=== PATIENT | female | born 1965 | race American Indian/Alaskan Native ===

== ENCOUNTER 2018-10-11 12:34 | Observation (INO) | payer BC ==
[2018-10-11 12:40] VITALS: BMI 26.6
[2018-10-11] MEDS ORDERED: Nitroglycerin 2% Ointment Foilpak UD TOP STA (12:59)
[2018-10-11] MEDS ORDERED: Aspirin 325 mg EC Tablets PO STA (12:59)
--- NOTE | 2018-10-11 12:59 | C.PDOC ---
History Of Present Illness 53 year old female presents to ED with complaint of new onset chest pain since yesterday. Pain is described as intermittent and non-exertional. Patient was sent from her PMD's office after they noted changes in her EKG. Patient was sent for admission. She also complains of headache and nausea. She states that today she awoke with persistent chest pressure and new onset discomfort in her left arm. Patient denies SOB, vomiting, and dizziness. <Naty Robertson - Last Filed: 10/11/18 13:24> History Per: Patient History/Exam Limitations: no limitations Onset/Duration Of Symptoms: Days (1), Intermittent Episodes, Sudden Onset Current Symptoms Are (Timing): Still Present Quality: Pressure, "Pain" Associated Symptoms: Nausea, Other (headache). denies: Dyspnea <Naty Robertson - Last Filed: 10/11/18 13:24> <Selina Bojorquez - Last Filed: 10/11/18 13:48> Time Seen by Provider: 10/11/18 12:54 Chief Complaint (Nursing): Chest Pain Past Medical History Reviewed: Historical Data, Nursing Documentation, Vital Signs Vital Signs: Last Vital Signs Temp 98.1 F 10/11/18 12:42 Pulse 90 10/11/18 12:42 Resp 18 10/11/18 12:42 BP 145/91 H 10/11/18 12:42 Pulse Ox 96 10/11/18 12:42 - Medical History PMH: HTN Surgical History: No Surg Hx Family History: States: Unknown Family Hx - Social History Hx Tobacco Use: No Hx Alcohol Use: No Hx Substance Use: No - Immunization History Hx Tetanus Toxoid Vaccination: No Hx Influenza Vaccination: No Hx Pneumococcal Vaccination: No <MarceloNaty - Last Filed: 10/11/18 13:24> Vital Signs: Last Vital Signs Temp 98.1 F 10/11/18 12:42 Pulse 90 10/11/18 12:42 Resp 18 10/11/18 12:42 BP 145/91 H 10/11/18 12:42 Pulse Ox 96 10/11/18 13:25 <Selina Bojorquez - Last Filed: 10/11/18 13:48> Review Of Systems Constitutional: Negative for: Fever, Chills, Weakness Cardiovascular: Positive for: Chest Pain. Negative for: Palpitations Respiratory: Negative for: Cough, Shortness of Breath Gastrointestinal: Positive for: Nausea. Negative for: Vomiting Musculoskeletal: Positive for: Arm Pain (discomfort in the left arm) Neurological: Positive for: Headache. Negative for: Weakness, Numbness, Dizziness <Naty Robertson - Last Filed: 10/11/18 13:24> Physical Exam - Physical Exam Appears: Well, Non-toxic, No Acute Distress Skin: Normal Color, Warm, Dry Head: Atraumatic, Normacephalic Neck: Normal ROM, Supple Chest: Symmetrical, No Deformity Cardiovascular: Rhythm Regular, No Murmur Respiratory: No Accessory Muscle Use, Other (NARD) Gastrointestinal/Abdominal: Soft, No Tenderness Extremity: Capillary Refill (<2 seconds) Extremity: Bilateral: Atraumatic, Normal Color And Temperature Pulses: Left Radial: Normal, Right Radial: Normal Neurological/Psych: Oriented x3, Normal Speech, Normal Cognition <Naty Robertson Last Filed: 10/11/18 13:24> ED Course And Treatment ECG: Interpreted By Me ECG Rhythm: Sinus Rhythm ECG Interpretation: Normal Rate From EC O2 Sat by Pulse Oximetry: 96 (RA) Pulse Ox Interpretation: Normal Progress Note: EKG and CXR ordered for patient. CBC and troponin ordered for patient. Aspirin PO and NTG TOP given to patient. Discussed with Dr. Oshea prior to arrival to admit patient under observation for chest pain. <Naty Robertson - Last Filed: 10/11/18 13:24> - Laboratory Results Result Diagrams: 10/11/18 13:22 - Other Rad CXR X-Ray: Interpreted by Me, Viewed By Me Interpretation: Accession No. : [id number]. Patient Name / ID : LISA KENDALL / [id number]. Exam Date : 10/11/2018 13:03:42 ( Approved ). Study Comment : Sex / Age : F / 53Y. Creator : tasneem beebe. Dictator : Yong Awad MD. Steam Box Operator : Cushion Maker : Yong Awad MD. Approver2 : Report Date : 10/11/2018 13:07:40. My Comment : . Date of service: 10/11/2018. HISTORY: Chest pain. COMPARISON: No prior study available for comparison. FINDINGS: LUNGS: No active pulmonary disease. PLEURA: No significant pleural effusion identified, no pneumothorax apparent. CARDIOVASC ULAR: No aortic atherosclerotic calcification present. Normal cardiac size. No pulmonary vascular congestion. OSSEOUS STRUCTURES: No significant abnormalities. VISUALIZED UPPER ABDOMEN: Normal. OTHER FINDINGS: None. IMPRESSION: No active disease. <Selina Bojorquez - Last Filed: 10/11/18 13:48> Disposition Counseled Patient/Family Regarding: Studies Performed, Diagnosis - Disposition Disposition Time: 12:57 - POA Present On Arrival: None <Naty Robertson - Last Filed: 10/11/18 13:24> <Selina Bojorquez - Last Filed: 10/11/18 13:48> - Disposition Disposition: HOSPITALIZED Condition: STABLE - Clinical Impression Clinical Impression: Chest pain - PA / FOOD PRESERVATION SCIENTIST / Resident Statement MD/DO has reviewed & agrees with the documentation as recorded. (Francisca Mcneil) - Scribe Statement All medical record entries made by the Scribe were at my direction and person ally dictated by me. I have reviewed the chart and agree that the record accurately reflects my personal performance of the history, physical exam, medical decision making, and the department course for this patient. I have also personally directed, reviewed, and agree with the discharge instructions and disposition. <Naty Robertson - Last Filed: 10/11/18 13:24>
[2018-10-11] MEDS ORDERED: Nitroglycerin 2% Ointment Foilpak UD TOP ONE (13:10)
[2018-10-11] MEDS ORDERED: Aspirin 325 mg EC Tablets PO ONE (13:11)
[2018-10-11 13:36] LABS: BASO # 0.1 K/uL (0.0-0.2); BASO % 1.5 % (0.0-2.0); EOS # 0.2 K/uL (0.0-0.7); EOS % 2.4 % (0.0-4.0); LYMPH # 2.4 K/uL (1.0-4.3); LYMPH % 30.1 % (20.0-40.0); MEAN CELL VOLUME 86.7 fL (81.0-99.0); MEAN CORPUSCULAR HEMOGLOBIN 29.7 pg (27.0-31.0); MEAN CORPUSCULAR HGB CONC 34.2 g/dL (33.0-37.0); MONO # 0.6 K/uL (0.0-0.8); NEUT # 4.7 K/uL (1.8-7.0); NRBC % 0.1 % (0.0-2.0); RBC 4.73 Mil/uL (3.80-5.20); WHITE BLOOD COUNT 8.1 K/uL (4.8-10.8)
--- NOTE | 2018-10-11 13:36 | RAD ---
Date of service: 10/11/2018 HISTORY: Chest pain COMPARISON: No prior study available for comparison. FINDINGS: LUNGS: No active pulmonary disease. PLEURA: No significant pleural effusion identified, no pneumothorax apparent. CARDIOVASCULAR: No aortic atherosclerotic calcification present. Normal cardiac size. No pulmonary vascular congestion. OSSEOUS STRUCTURES: No significant abnormalities. VISUALIZED UPPER ABDOMEN: Normal. OTHER FINDINGS: None. IMPRESSION: No active disease.
[2018-10-11 14:33] LABS: ALB/GLOB RATIO 1.3 (1.0-2.1); ALBUMIN 4.3 g/dL (3.5-5.0); ALT/SGPT 16 U/L (9-52); AST/SGOT 18 U/L (14-36); BLOOD UREA NITROGEN 12 mg/dL (7-17); CALCIUM 8.8 mg/dl (8.6-10.4); GFR NON-AFRICAN AMERICAN > 60
[2018-10-11 15:14] VITALS: RESP 20
[2018-10-11] MEDS ORDERED: Potassium Chloride 20 mEq ER Tab PO ONE (18:00)
--- NOTE | 2018-10-11 21:57 | CP.PCM.CON ---
History of Present Illness - History of Present Illness History of Present Illness: CC chest pain HPI 53 year old female presents to ED with complaint of new onset of precordial chest pain radiating to the left arm x 1 day . Patient was sent from her PMD's office after they noted changes in her EKG and patient was sent for admission. She also complains of headache and nausea. She states that today she awoke. Past Patient History - Past Social History Smoking Status: Never Smoked - CARDIAC Hx Hypertension: Yes - PSYCHIATRIC Hx Substance Use: No - SURGICAL HISTORY Hx Surgeries: Yes Hx Eye Surgery: Yes (RIGHT CORNEAL TRANSPLANT) Hx Hysterectomy: Yes Hx Tubal Ligation: Yes - ANESTHESIA Hx Anesthesia: Yes Meds Allergies/Adverse Reactions: Allergies Allergy/AdvReac Type Severity Reaction Status Date / Time Penicillins Allergy Severe RASH Verified 10/11/18 12:40 shellfish derived Allergy Severe RASH Verified 10/11/18 12:40 - Medications Medications: Current Medications Acetaminophen (Tylenol 325mg Tab) 650 mg PO Q6 PRN PRN Reason: Pain, moderate (4-7) Last Admin: 10/11/18 17:25 Dose: 650 mg Results - Vital Signs Recent Vital Signs: Last Vital Signs Temp 98.1 F 10/11/18 15:30 Pulse 90 10/11/18 15:30 Resp 20 10/11/18 15:30 BP 133/81 10/11/18 15:30 Pulse Ox 98 10/11/18 18:00 - Labs Result Diagrams: 10/11/18 13:22 10/11/18 14:15 Labs: Laboratory Results - last 24 hr 10/11/18 10/11/18 13:22 14:15 WBC 8.1 RBC 4.73 Hgb 14.0 Hct 41.0 MCV 86.7 MCH 29.7 MCHC 34.2 RDW 14.0 Plt Count 296 MPV 9.0 Neut % (Auto) 58.0 Lymph % (Auto) 30.1 [place] % (Auto) 8.0 Eos % (Auto) 2.4 Baso % (Auto) 1.5 Neut # (Auto) 4.7 Lymph # (Auto) 2.4 [place] # (Auto) 0.6 Eos # (Auto) 0.2 Baso # (Auto) 0.1 Sodium 141 Potassium 3.5 L Chloride 103 Carbon Dioxide 30 Anion Gap 12 BUN 12 Creatinine 0.6 L Est GFR ( Amer) > 60 Est GFR (Non-Af Amer) > 60 Random Glucose 96 Calcium 8.8 Total Bilirubin 0.4 AST 18 ALT 16 Alkaline Phosphatase 96 Troponin I < 0.0120 Total Protein 7.7 Albumin 4.3 Globulin 3.4 Albumin/Globulin Ratio 1.3 Assessment & Plan - Assessment and Plan (Free Text) Assessment: Acute coronary syndrome Plan: KENNY ECHO Lexiscan
--- NOTE | 2018-10-11 23:06 | CP.PCM.HP ---
History of Present Illness - History of Present Illness History of Present Illness: Chief complaint: Chest pain. HPI: Patient is a 53-year-old female with a history of hypertension, hypercholesterolemia, gastroesophageal reflux disease, colitis came to the office today, at that time she was complaining of left-sided chest pain especially in the left pectoral area, radiating to the left upper extremity. At the time patient was complaining of increasing chest discomfort. Chest tightness. Mild epigastric pain. Patient started noticing the symptoms yesterday, gradually got worse. 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 In the office I did electrocardiogram, because of that there is some minimal EKG changes noted I recommended to go to the emergency room. In the ER patient was evaluated. And admitted as an observation. Past medical history: Hypertension, cervical disc disease surgical history: Surgical history: Hysterectomy, corneal transplant Patient recently had a breast biopsy also. Allergy allergic to anesthesia, and also penicillin. Family history significant for hypertension and diabetes. Mother had a history of breast cancer, and liver metastasis. Sister also had a history of breast cancer. Social history: Non-smoker. Nonalcoholic. Current medications: Amlodipine 5 mg daily omeprazole 20 mg daily alprazolam 0.5 mg as needed review of system: Review of system: Patient is having headache over the left side of the forehead noted. Also she was complaining of left-sided chest pain, minimal palpitation, epigastric pain. Left upper and lower extremity she is also feeling weakness. On examination: Vital signs stable. Chest good air entry Regular heart sounds noted Nontender abdomen. No pedal edema Chest x-ray was done today showing evidence of no new changes. Mild cardiomegaly noted. EKG showing evidence of normal sinus rhythm. Flattening of the T waves in the lateral leads noted. In my office there was T wave inversion noted Assessment and recommendation: 53-year-old female with a history of hypertension, high cholesterol, and gastritis and colitis admitted to the hospital with a possible ischemic heart disease. Cardiology evaluation called in. Tomorrow we will get the stress test. We will also get the neurological opinion for the ongoing headache and I advised her to take rest and will follow for the patient. Present on Admission - Present on Admission Any Indicators Present on Admission: No History of DVT/PE: No History of Uncontrolled Diabetes: No Urinary Catheter: No Decubitus Ulcer Present: No Past Patient History - Past Social History Smoking Status: Never Smoked - CARDIAC Hx Hypertension: Yes - PSYCHIATRIC Hx Substance Use: No - SURGICAL HISTORY Hx Surgeries: Yes Hx Eye Surgery: Yes (RIGHT CORNEAL TRANSPLANT) Hx Hysterectomy: Yes Hx Tubal Ligation: Yes - ANESTHESIA Hx Anesthesia: Yes Meds Allergies/Adverse Reactions: Allergies Allergy/AdvReac Type Severity Reaction Status Date / Time Penicillins Allergy Severe RASH Verified 10/11/18 12:40 shellfish derived Allergy Severe RASH Verified 10/11/18 12:40 Results - Vital Signs Recent Vital Signs: Last Vital Signs Temp 98.1 F 10/11/18 15:30 Pulse 90 10/11/18 15:30 Resp 20 10/11/18 15:30 BP 133/81 10/11/18 15:30 Pulse Ox 98 10/11/18 18:00 - Labs Result Diagrams: 10/11/18 13:22 10/11/18 14:15 Labs: Laboratory Results - last 24 hr 10/11/18 10/11/18 13:22 14:15 WBC 8.1 RBC 4.73 Hgb 14.0 Hct 41.0 MCV 86.7 MCH 29.7 MCHC 34.2 RDW 14.0 Plt Count 296 MPV 9.0 Neut % (Auto) 58.0 Lymph % (Auto) 30.1 [place] % (Auto) 8.0 Eos % (Auto) 2.4 Baso % (Auto) 1.5 Neut # (Auto) 4.7 Lymph # (Auto) 2.4 [place] # (Auto) 0.6 Eos # (Auto) 0.2 Baso # (Auto) 0.1 Sodium 141 Potassium 3.5 L Chloride 103 Carbon Dioxide 30 Anion Gap 12 BUN 12 Creatinine 0.6 L Est GFR ( Amer) > 60 Est GFR (Non-Af Amer) > 60 Random Glucose 96 Calcium 8.8 Total Bilirubin 0.4 AST 18 ALT 16 Alkaline Phosphatase 96 Troponin I < 0.0120 Total Protein 7.7 Albumin 4.3 Globulin 3.4 Albumin/Globulin Ratio 1.3
--- NOTE | 2018-10-12 07:09 | CP.PCM.CON ---
History of Present Illness - History of Present Illness History of Present Illness: CONSULTATION DICTATED HEADACHE WITH VISUAL CHANGES OS - PROPTOTIC R/O VASCULITIS /STRUCTURAL PATHOLOGY MRI/MRA/BLOOD WORK UP SYMPTOMATIC THERAPY HYDRATION Past Patient History - Past Social History Smoking Status: Never Smoked - CARDIAC Hx Hypertension: Yes - PSYCHIATRIC Hx Substance Use: No - SURGICAL HISTORY Hx Surgeries: Yes Hx Eye Surgery: Yes (RIGHT CORNEAL TRANSPLANT) Hx Hysterectomy: Yes Hx Tubal Ligation: Yes - ANESTHESIA Hx Anesthesia: Yes Meds Allergies/Adverse Reactions: Allergies Allergy/AdvReac Type Severity Reaction Status Date / Time Penicillins Allergy Severe RASH Verified 10/11/18 12:40 shellfish derived Allergy Severe RASH Verified 10/11/18 12:40 - Medications Medications: Current Medications Acetaminophen (Tylenol 325mg Tab) 650 mg PO Q6 PRN PRN Reason: Pain, moderate (4-7) Last Admin: 10/11/18 22:58 Dose: 650 mg Amlodipine Besylate (Norvasc) 5 mg PO DAILY IRENE Lorazepam (Ativan) 2 mg IVP ONCE ONE Stop: 10/12/18 07:03 Results - Vital Signs Recent Vital Signs: Last Vital Signs Temp 98.7 F 10/11/18 23:00 Pulse 73 10/11/18 23:00 Resp 20 10/11/18 23:00 BP 121/72 10/11/18 23:00 Pulse Ox 98 10/11/18 23:00 - Labs Result Diagrams: 10/11/18 13:22 10/11/18 14:15 Labs: Laboratory Results - last 24 hr 10/11/18 10/11/18 13:22 14:15 WBC 8.1 RBC 4.73 Hgb 14.0 Hct 41.0 MCV 86.7 MCH 29.7 MCHC 34.2 RDW 14.0 Plt Count 296 MPV 9.0 Neut % (Auto) 58.0 Lymph % (Auto) 30.1 [place] % (Auto) 8.0 Eos % (Auto) 2.4 Baso % (Auto) 1.5 Neut # (Auto) 4.7 Lymph # (Auto) 2.4 [place] # (Auto) 0.6 Eos # (Auto) 0.2 Baso # (Auto) 0.1 Sodium 141 Potassium 3.5 L Chloride 103 Carbon Dioxide 30 Anion Gap 12 BUN 12 Creatinine 0.6 L Est GFR ( Amer) > 60 Est GFR (Non-Af Amer) > 60 Random Glucose 96 Calcium 8.8 Total Bilirubin 0.4 AST 18 ALT 16 Alkaline Phosphatase 96 Troponin I < 0.0120 Total Protein 7.7 Albumin 4.3 Globulin 3.4 Albumin/Globulin Ratio 1.3
[2018-10-12] MEDS ORDERED: Caffeine Citrated **INJ** 20 MG/ML IV ONE (08:12)
[2018-10-12 08:13] LABS: CK-MB < 0.22 ng/mL (0.0-3.38)
[2018-10-12 08:21] LABS: FREE T4 0.71 ng/dL (0.78-2.19)
[2018-10-12] MEDS ORDERED: Enoxaparin 40 mg Syringe SC SCH (10:00)
--- NOTE | 2018-10-12 10:06 | CON ---
DATE: 10/12/2018 LOCATION: Room #564, bed B. ATTENDING PHYSICIAN: Barbra Oshea MD REASON FOR CONSULTATION: Headache. CHIEF COMPLAINT: The patient was brought into [facility] with a history of having escalated hypertension, chest pain and abnormal EKG. Since she is complaining of headache and visual changes associating with her headache, I was called in to evaluate her for further management. HISTORY OF PRESENT ILLNESS: Ms. 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 At the max, the headache goes up to 5/10, throbbing in nature associating with some visual changes on the right side. Lately she is noticing this on her left side as well. The headache is not associating with nausea or vomiting or dizziness. No history of focal weakness associating with this headache. No history of jaw pain. No history of fever. No history of recent loss of weight. No history of recent travel. Headache is not getting better with [id number] medication at present. PAST MEDICAL HISTORY: Significant to hypertension, dyslipidemia, gastroesophageal reflux disease, status post cornea replacement many years ago. PERSONAL HISTORY: She denies smoking or alcohol use. ALLERGIES: TO PENICILLIN AND SHELLFISH. REVIEW OF SYSTEMS: A 12-point system being reviewed. From neuro, headache with visual changes. MEDICATIONS: Amlodipine, Tylenol. PHYSICAL EXAMINATION: VITAL SIGNS: Blood pressure 121/72, mean artery pressure of 88, respiratory rate 18, pulse rate is 73 and regular, temperature 98.7. NECK: Supple. No carotid bruits. HEART: Heart sounds regular. CHEST: Fair air entry. EXTREMITIES: No edema in legs. NEUROLOGIC EXAMINATION: Mental status examination, she is awake, alert and oriented to person, place and time. Speech is clear. Naming, repetition, fluency, comprehension all within normal. CRANIAL NERVE EXAMINATION: Visual field intact. Pupils reactive. Extraocular movement normal. No nystagmus. No facial sensory deficit. No facial asymmetry. Hearing is normal. Tongue is midline. Good gag. Her left eye is proptotic compared to the right eye. Motor examination on outstretched hand with eyes closed, no drift noted. Power is symmetric on either side. Deep tendon reflexes biceps, brachialis, triceps, knee and ankle all are 2+. Plantars are downgoing. Sensory examination, no evidence of dermatomal sensory loss. Coordination: Finger-nose test is intact. Gait is normal. Examination of the temporal artery, no tenderness. No Tinel's sign on temporal artery. is normal. No sinus tenderness. CONCLUSION: On reviewing her history from the chart as well as from the patient as per my neurological examination, the patient's headache with visual changes, structural cause versus inflammatory processes should be ruled out. The current examination is no lateralizing any sign except left proptotic eye. LABORATORY DATA: Blood workup; WBC 8.1, hemoglobin 14, hematocrit 41, platelet 296. Sodium 141, potassium 3.5, chloride 103, bicarbonate 30, BUN 12, creatinine 0.6, GFR more than 60. Liver functions are normal. RECOMMENDATIONS: 1. MRI of the brain to rule out any structural cause for her headache. 2. MR angiogram of neck as well as head to rule out vasculitis of vasculopathy 3. Blood workup to rule out any inflammatory process or metabolic process for her headache. In meantime she could be treated symptomatically for her headache as she has been getting. Meantime, the patient should be hydrated well. The patient's condition has been all discussed. The patient agreed with my plan of management. Ole Kraft MD
[2018-10-12 15:33] VITALS: BP 134/89; TEMP 97.8; O2SAT 98
--- NOTE | 2018-10-12 16:22 | MRI ---
Date of service: 10/12/2018 PROCEDURE: MR Angiography of the neck without contrast HISTORY: VASCULOPATHY COMPARISON: None available. TECHNIQUE: 3D [id number] angiography of the neck was performed. Rotating maximum intensity projection images of the cervical carotid and vertebral arteries were generated. The origins of the common carotid arteries were not visualized, which is a limitation inherent to the non-contrast time of flight technique. FINDINGS: RIGHT CAROTID ARTERIES: Common Carotid Artery: Normal. Carotid Bifurcation: Limited carotid bulb are atherosclerotic plaque identified. Internal Carotid Artery:Normal. External Carotid Artery (proximal branches): Normal. LEFT CAROTID ARTERIES: Common Carotid Artery: Normal. Carotid Bifurcation: Limited carotid bulb are atherosclerotic plaque identified. Internal Carotid Artery:Normal. External Carotid Artery (proximal branches): Normal. VERTEBRAL ARTERIES: Right Vertebral Artery: Normal. Left Vertebral Artery: Normal. OTHER FINDINGS: None. IMPRESSION: Limited atherosclerotic plaques identified the bilateral carotid bulb regions however no significant stenosis appreciate the bilateral common or internal carotid arteries particularly applying the NASCET criteria to the bilateral internal carotid artery calibers.
--- NOTE | 2018-10-12 16:28 | MRI ---
Date of service: 10/12/2018 PROCEDURE: MRI BRAIN WITHOUT CONTRAST HISTORY: structural cause - headache COMPARISON: None available. TECHNIQUE: Multiplanar, multisequence MR images of the brain were obtained without intravenous contrast enhancement. FINDINGS: HEMORRHAGE: None DWI: No evidence of an acute or early subacute infarction. BRAIN PARENCHYMA: Rare subcortical long TR hyperintensities are appreciated with 1 at the right frontal lobe and another at the left anterior limb internal capsule. Trace ground-glass long TR hyperintensity is appreciated at the left frontal vertex. This pattern is suggestive of chronic microangiopathy and appears age appropriate. There is no mass effect. There is no evidence of distortion of the corticomedullary borders diffusely with the posterior fossa contents unremarkable, including the brainstem. No suspicious extra-axial collection identified. Corpus callosum signal is within normal limits throughout. VENTRICLES: Unremarkable. No hydrocephalus. CRANIUM: Unremarkable. ORBITS: Grossly unremarkable. PARANASAL SINUSES/MASTOIDS: Clear VASCULAR SYSTEM: Skull base flow voids intact. OTHER FINDINGS: None. IMPRESSION: 1. Trace age-related degenerative changes are appreciated without mass effect intracranial hemorrhage or acute/subacute brain infarction appreciable. 2. Examination otherwise unremarkable.
--- NOTE | 2018-10-12 16:40 | MRI ---
Date of service: 10/12/2018 PROCEDURE: Magnetic Resonance Angiography Brain HISTORY: VASCULITIS COMPARISON: None available. TECHNIQUE: 3D time of flight MR angiography of the intracranial arteries was performed. Rotating maximum intensity projection images were generated. FINDINGS: INTERNAL CAROTID ARTERIES: Unremarkable. The skull base, petrous, cavernous and supraclinoid segments are bilaterally widely patient. ANTERIOR CEREBRAL ARTERIES: Unremarkable. A1 and A2 segments are widely patent. Smaller distal branches unremarkable, as visualized. MIDDLE CEREBRAL ARTERIES: M1 and M2 segments are widely patent. Perisylvian branches grossly are unremarkable the right but borderline irregular at the left sylvian fissure but this may be a function of MR limitation rather than true intrinsic pathology including vasculitis. POSTERIOR CIRCULATION: Basilar Artery: Fenestrated proximal basilar artery, normal variant. Distal Vertebral Arteries: Unremarkable. Posterior Cerebral Arteries: Unremarkable. Posterior Inferior Cerebellar Arteries: Unremarkable. ANEURYSM/ VASCULAR MALFORMATIONS: None. OTHER FINDINGS: None. IMPRESSION: Likely normal MR angiography of the brain. No definitive MR pattern to suggest vasculitis in particular. However, tertiary and quadrant branches (perisylvian) of the middle cerebral arteries in particular are better depicted under CT angiography of the brain than in MR angiography, particularly in mild or moderate cases. The left perisylvian branches are somewhat irregular in the current exam but this could be a function of technique rather than intrinsic pathology. Still, consider follow-up CT angiography of the brain.
[2018-10-12 19:17] VITALS: PULSE 98
--- NOTE | 2018-10-12 22:03 | CP.PCM.DIS ---
Provider - Provider Date of Admission: 10/11/18 12:59 Attending physician: Barbra Oshea MD Consults: 10/11/18 20:59 Physician Consult Routine Comment: Consulting Provider: Ivelisse Rosas Consulting Physician: Ivelisse Rosas Reason for Consult: Chest pain 10/11/18 23:06 Neurology Consult Routine Comment: Consulting Provider: Ole Kraft Consulting Physician: Ole Kraft Reason for Consult: headache Time Spent in preparation of Discharge (in minutes): 45 Hospital Course - Lab Results Lab Results: Most Recent Lab Values WBC 8.1 K/uL (4.8-10.8) 10/11/18 13:22 RBC 4.73 Mil/uL (3.80-5.20) 10/11/18 13:22 Hgb 14.0 g/dL (11.0-16.0) 10/11/18 13:22 Hct 41.0 % (34.0-47.0) 10/11/18 13:22 MCV 86.7 fL (81.0-99.0) 10/11/18 13:22 MCH 29.7 pg (27.0-31.0) 10/11/18 13:22 MCHC 34.2 g/dL (33.0-37.0) 10/11/18 13:22 RDW 14.0 % (11.5-14.5) 10/11/18 13:22 Plt Count 296 K/uL (130-400) 10/11/18 13:22 MPV 9.0 fL (7.2-11.7) 10/11/18 13:22 Neut % (Auto) 58.0 % (50.0-75.0) 10/11/18 13:22 Lymph % (Auto) 30.1 % (20.0-40.0) 10/11/18 13:22 [place] % (Auto) 8.0 % (0.0-10.0) 10/11/18 13:22 Eos % (Auto) 2.4 % (0.0-4.0) 10/11/18 13:22 Baso % (Auto) 1.5 % (0.0-2.0) 10/11/18 13:22 Neut # (Auto) 4.7 K/uL (1.8-7.0) 10/11/18 13:22 Lymph # (Auto) 2.4 K/uL (1.0-4.3) 10/11/18 13:22 [place] # (Auto) 0.6 K/uL (0.0-0.8) 10/11/18 13:22 Eos # (Auto) 0.2 K/uL (0.0-0.7) 10/11/18 13:22 Baso # (Auto) 0.1 K/uL (0.0-0.2) 10/11/18 13:22 ESR 3 mm/hr (0-20) 10/12/18 07:20 Sodium 141 mmol/L (132-148) 10/11/18 14:15 Potassium 3.5 mmol/L (3.6-5.2) L 10/11/18 14:15 Chloride 103 mmol/L (98-107) 10/11/18 14:15 Carbon Dioxide 30 mmol/L (22-30) 10/11/18 14:15 Anion Gap 12 (10-20) 10/11/18 14:15 BUN 12 mg/dL (7-17) 10/11/18 14:15 Creatinine 0.6 mg/dL (0.7-1.2) L 10/11/18 14:15 Est GFR ( Amer) > 60 10/11/18 14:15 Est GFR (Non-Af Amer) > 60 10/11/18 14:15 Random Glucose 96 mg/dL (65-105) 10/11/18 14:15 Hemoglobin A1c 5.4 % (4.2-6.5) 10/12/18 07:20 Calcium 8.8 mg/dl (8.6-10.4) 10/11/18 14:15 Total Bilirubin 0.4 mg/dL (0.2-1.3) 10/11/18 14:15 AST 18 U/L (14-36) 10/11/18 14:15 ALT 16 U/L (9-52) 10/11/18 14:15 Alkaline Phosphatase 96 U/L (38-126) 10/11/18 14:15 Total Creatine Kinase 72 U/L (30-135) 10/12/18 07:20 CK-MB (Mass) < 0.22 ng/mL (0.0-3.38) 10/12/18 07:20 Troponin I < 0.0120 ng/mL (0.00-0.120) 10/12/18 07:20 C-React Prot High Sens 1.97 mg/L (1.00-3.00) 10/12/18 07:20 Total Protein 7.7 g/dL (6.3-8.3) 10/11/18 14:15 Albumin 4.3 g/dL (3.5-5.0) 10/11/18 14:15 Globulin 3.4 gm/dL (2.2-3.9) 10/11/18 14:15 Albumin/Globulin Ratio 1.3 (1.0-2.1) 10/11/18 14:15 Homocysteine 7.1 umol/L (4.7-12.6) 10/12/18 07:20 Free T4 0.71 ng/dL (0.78-2.19) L 10/12/18 07:20 TSH 3rd Generation 1.91 mIU/L (0.46-4.68) 10/12/18 07:20 - Hospital Course Hospital Course: Chief complaint: Chest pain. HPI: Patient is a 53-year-old female with a history of hypertension, hyp ercholesterolemia, gastroesophageal reflux disease, colitis came to the office today, at that time she was complaining of left-sided chest pain especially in the left pectoral area, radiating to the left upper extremity. At the time patient was complaining of increasing chest discomfort. Chest tightness. Mild epigastric pain. Patient started noticing the symptoms yesterday, gradually got worse. 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 In the office I did electrocardiogram, because of that there is some minimal EKG changes noted I recommended to go to the emergency room. In the ER patient was evaluated. And admitted as an observation. Past medical history: Hypertension, cervical disc disease surgical history: Surgical history: Hysterectomy, corneal transplant Patient recently had a breast biopsy also. Allergy allergic to anesthesia, and also penicillin. Family history significant for hypertension and diabetes. Mother had a history of breast cancer, and liver metastasis. Sister also had a history of breast cancer. Social history: Non-smoker. Nonalcoholic. Current medications: Amlodipine 5 mg daily omeprazole 20 mg daily alprazolam 0.5 mg as needed review of system: Review of system: Patient is having headache over the left side of the forehead noted. Also she was complaining of left-sided chest pain, minimal palpitation, epigastric pain. Left upper and lower extremity she is also feeling weakness. On examination: Vital signs stable. Chest good air entry Regular heart sounds noted Nontender abdomen. No pedal edema Chest x-ray was done today showing evidence of no new changes. Mild cardiomegaly noted. EKG showing evidence of normal sinus rhythm. Flattening of the T waves in the lateral leads noted. In my office there was T wave inversion noted Assessment and recommendation: 53-year-old female with a history of hypertension, high cholesterol, and gastr itis and colitis admitted to the hospital with a possible ischemic heart disease. Cardiology evaluation called in. Tomorrow we will get the stress test. We will also get the neurological opinion for the ongoing headache and I advised her to take rest and will follow for the patient. Course in the hospital: Patient was admitted under observation Telemetry was monitoring. Cardiology, urology evaluation was called in. Patient today underwent a MRI, MRA, cervical spine MRI. And also nuclear stress test. Discussed with the neurologist, residential subcontractor. Patient is clinically stable. No evidence of major disease noted. Mild atherosclerotic changes noted in the carotid bulb. Clinically stable otherwise. I advised her to take rest. Patient can be discharged home today. She will continue amlodipine 5 mg daily. She will follow-up with the cardiology, neurology as an outpatient and she will follow-up in my office in 1 week. Final diagnosis: Atypical chest pain. Atherosclerotic mild. Hypertension Gastero esophageal reflux disease Colitis Discharge Plan - Follow Up Plan Condition: STABLE Disposition: HOME/ ROUTINE Instructions: Chest Pain (DC) Referrals: Ivelisse Rosas MD [Staff Provider] - Ole Kraft MD [Staff Provider] - Barbra Oshea MD [Staff Provider] -
--- NOTE | 2018-10-12 23:24 | CARD ---
APPROVED REPORT Date of service: 10/12/2018 EXAM: Two-dimensional and M-mode echocardiogram with Doppler and color Doppler. Other Information Quality : GoodRhythm : INDICATION Chest Pain RISK FACTORS Hypertension Hyperlipidemia 2D DIMENSIONS IVSd1.0 (0.7-1.1cm)LVDd3.8 (3.9-5.9cm) PWd1.1 (0.7-1.1cm)LA Ftojcy41 (18-58mL) LVDs2.4 (2.5-4.0cm)FS (%) 36.1 % LVEF (%)66.5 (>50%)LVEF (Hutchins's)69.50 % IVC0.00 cm M-Mode DIMENSIONS RVDd1.33 (2.1-3.2cm)Left Atrium (MM)3.39 (2.5-4.0cm) IVSd1.43 (0.7-1.1cm)Aortic Root2.92 (2.2-3.7cm) LVDd4.52 (4.0-5.6cm)Aortic Cusp Exc.1.96 (1.5-2.0cm) PWd1.24 (0.7-1.1cm)FS (%) 53 % LVDs2.15 (2.0-3.8cm)LVEF (%)70 (>50%) Mitral Valve MV E Jzzmqkmr85.6cm/sMV A Ujnmbzqj20.9cm/sE/A ratio0.7 TDI Lateral E' Peak V14.93cm/sMedial E' Peak V6.74cm/sE/Lateral E'3.8 E/Medial E'8.4 Tricuspid Valve TR Peak Recajcmm817ys/sTR Peak Gr.[id number] LEFT VENTRICLE The left ventricle is normal size. There is mild concentric left ventricular hypertrophy. Left ventricle systolic function is normal. The Ejection Fraction is 65-70%. There is normal LV segmental wall motion. Tissue Doppler imaging reveals abnormal left ventricular diastolic dysfunction. RIGHT VENTRICLE The right ventricle is normal size. There is normal right ventricular wall thickness. The right ventricular systolic function is normal. ATRIA The left atrium size is normal. The right atrium size is normal. The interatrial septum is intact with no evidence for an atrial septal defect. AORTIC VALVE The aortic valve is normal in structure. No aortic regurgitation is present. There is no aortic valvular stenosis. MITRAL VALVE The mitral valve is normal in structure. There is no evidence of mitral valve prolapse. There is no mitral valve stenosis. There is no mitral valve regurgitation noted. TRICUSPID VALVE The tricuspid valve is normal in structure. There is mild tricuspid regurgitation. Right ventricular systolic pressure is estimated at 30 mmHg. There is borderline pulmonary hypertension. PULMONIC VALVE The pulmonic valve is not well visualized. There is no pulmonic valvular regurgitation. GREAT VESSELS The aortic root is normal in size. PERICARDIAL EFFUSION There is no significant pericardial effusion. <Conclusion> Left ventricle systolic function is normal. The Ejection Fraction is 65-70%. Hypertensive heart disease. Diastolic dysfunction. No aortic regurgitation is present. There is no mitral valve regurgitation noted. There is mild tricuspid regurgitation. There is borderline pulmonary hypertension. There is no pulmonic valvular regurgitation.
--- NOTE | 2018-10-16 22:39 | CARD ---
APPROVED REPORT Date of service: 10/12/2018 EKG Measurement Heart [id number] <Conclusion> Normal sinus rhythm Normal ECG
== END 2018-10-12 22:33 | disposition home or self-care (01) ==
LOC: C.ER 12:34 → C.9E 12:59 → C.5S 14:36
PROVIDERS: ADMIT Internal Medicine; ATTEND Internal Medicine
DX: I24.9 Acute ischemic heart disease, unspecified (principal); I10 Essential (primary) hypertension; K21.9 Gastro-esophageal reflux disease without esophagitis; K52.9 Noninfective gastroenteritis and colitis, unspecified; E78.00 Pure hypercholesterolemia, unspecified; E78.5 Hyperlipidemia, unspecified; Z80.3 Family history of malignant neoplasm of breast; Z83.3 Family history of diabetes mellitus; Z82.49 Family history of ischemic heart disease and other diseases of the circulatory system; K29.70 Gastritis, unspecified, without bleeding
CPT/HCPCS: 36415; 70544; 70547; 70551; 71045; 78452; 80053; 82164; 83036; 83090; 84439; 84443; 84484; 85025; 85651; 86038; 86140; 86334; 93005; 93017; 93306; 96372; 96374; 99285; A9502; G0378; J1650; J2060; J2785